=== PATIENT | male | born 1990 | race Two or more races ===

== ENCOUNTER 2018-02-06 02:39 | Emergency (ER) | payer SELFPAY ==
[~2018-02-06] VITALS: Ht 193 cm; Wt 90.0 kg
--- NOTE | 2018-02-06 02:52 | NUR ---
PT WAS BROUGHT TO ER BY A FRIEND BUT DOES NOT WANT TO BE SEEN, PT IS INTOXICATED A AND O X 4 AMBULATORY, PT CONTINUES TO ARGUE ABOUT NO WANTING TO BE SEEN, ER SUP TO LOBBY AT THIS TIME
--- NOTE | 2018-02-06 02:54 | NUR ---
tax intern notified this rn that pt was not wanting to be seen. his friend was making him come in due to him "hitting his head". pt reports he did not want to be seen, pt ambulated to and security came to standby as pt and friend were arguing about him being seen in lobby. this rn stated pt is refusing to be seen and will be signed out. attempted to offer room and to be seen by md, pt stated he did not want to and did not want to be here.
--- NOTE | 2018-02-06 03:11 | NUR ---
per security now pt wants to be seen.
[2018-02-06 03:12] VITALS: BP 122/81
--- NOTE | 2018-02-06 03:19 | NUR ---
PT CAME BACK TO ER TOLD SECURITY THAT HE WAS WILLING TO BE SEEN AND THEN WALKED OUT [facility] AND SAID THAT HE DID NOT WANT TO BE SEEN
== END 2018-02-06 02:58 ==
LOC: ED 02:52
DX: F10.129 Alcohol abuse with intoxication, unspecified (principal); Z53.21 Procedure and treatment not carried out due to patient leaving prior to being seen by health care provider